=== PATIENT | male | born 1990 | race Caucasian/White ===

== ENCOUNTER 2016-11-08 07:43 | Emergency (ER) | payer MEDICAID ==
[~2016-11-08] VITALS: Ht 175.3 cm; Wt 59.0 kg
[2016-11-08 08:55] VITALS: BP 115/78
== END 2016-11-08 08:55 | disposition home or self-care (01) ==
LOC: ED 07:43
DX: K29.00 Acute gastritis without bleeding (principal); Z88.0 Allergy status to penicillin
CPT/HCPCS: Q0162

== ENCOUNTER 2018-01-18 10:51 | Emergency (ER) | payer MEDICAID ==
[~2018-01-18] VITALS: Ht 175.3 cm; Wt 60.8 kg
[2018-01-18 11:32] VITALS: Ht 175.3 cm; Wt 60.8 kg
[2018-01-18 13:52] LABS: BASOPHIL % 0.8 % (0-2); PLATELET COUNT 291 x10^3mcL (130-400); RED CELL DISTRIBUTION WIDTH 12.9 % (11.5-14.5)
[2018-01-18 13:55] LABS: CALCIUM 8.7 mg/dL (8.5-10.1); CARBON DIOXIDE 28.8 mmol/L (21-32); CHLORIDE SERUM 105 mmol/L (98-107); CREATININE SERUM 0.9 mg/dL (0.7-1.3); GFR1 > 60 mL/min; GLUCOSE SERUM 104 mg/dL (74-106); POTASSIUM SERUM 3.7 mmol/L (3.5-5.1); SODIUM SERUM 141 mmol/L (136-145)
[2018-01-18 13:59] LABS: ALBUMIN 3.7 g/dL (3.4-5.0); ALKALINE PHOSPHATASE 62 U/L (46-116); ALT/SGPT 26 U/L (16-63); AST/SGOT 22 U/L (15-37); BILIRUBIN TOTAL 0.8 mg/dL (0.20-1.00); LIPASE 104 IU/L (73-393); TOTAL PROTEIN, SERUM 7.3 g/dL (6.4-8.2)
[2018-01-18 14:06] VITALS: BP 100/62
== END 2018-01-18 14:14 | disposition home or self-care (01) ==
LOC: ED 10:51
PROVIDERS: Emergency Medicine
DX: K52.89 Other specified noninfective gastroenteritis and colitis (principal); Z88.0 Allergy status to penicillin
CPT/HCPCS: 36415; Q0162

== ENCOUNTER 2019-03-31 10:51 | Emergency (ER) | payer OTHER, MEDICAID ==
[~2019-03-31] VITALS: Ht 175.3 cm; Wt 64.0 kg
[2019-03-31 10:55] VITALS: Ht 175.3 cm; Wt 64.0 kg
[2019-03-31 12:25] VITALS: BP 106/67
== END 2019-03-31 12:25 | disposition home or self-care (01) ==
LOC: ED 10:51
DX: R05 Cough (principal); R06.02 Shortness of breath; R07.89 Other chest pain; R25.1 Tremor, unspecified; Z88.0 Allergy status to penicillin

== ENCOUNTER 2019-06-13 19:10 | Emergency (ER) | payer OTHER ==
[~2019-06-13] VITALS: Ht 175.3 cm; Wt 60.9 kg
[2019-06-13 22:06] VITALS: BP 111/64
== END 2019-06-13 22:06 | disposition home or self-care (01) ==
LOC: ED 19:10
DX: B34.9 Viral infection, unspecified (principal); Z88.0 Allergy status to penicillin